=== PATIENT | male | born 1995 | race Caucasian/White ===

== ENCOUNTER 2016-10-03 01:41 | Emergency (ER) | payer SELFPAY ==
--- NOTE | 2016-10-03 03:21 | ED ---
Katty Kurtz Rebecca, scribed for Arron Estes MD on 10/03/16 at 0157 . Substance Abuse/Use - HPI Summary HPI Summary: Pt is a 21 y/o M BIBA who presents to ED for EtOH intoxication. EMS report that his vitals had been stable and that he arouses to voice. Pt was found outside of a bar, collapsed on the ground. Reports that he had vomited in the bar prior to leaving. Vomited 2x while en route to [facility]. Sx result from a binge use of alcohol with sx aggravated and alleviated by nothing. Unsure of how much alcohol has been consumed. Girlfriend denies use of anything beside EtOH. EMS deny any signs of trauma. Level 5 caveat due to decreased responsiveness from EtOH intoxication. - History Of Current Complaint Chief Complaint: EDSubstanceAbuse Stated Complaint: ALCOHOL CONSUMPTION Time Seen by Provider: 10/03/16 01:45 Hx Obtained From: Family/Rn Maternity - Girlfriend, EMS Hx From Patient Unobtainable Due To: Altered Mental Status - EtOH intoxication Ingestion History: Type/Name Of Drug - EtOH, Amount Ingested Overdose Characteristics: Oral Timing Of Abuse: Binge Use Severity Initially: Moderate Severity Currently: Moderate Character: Stuporous Aggravating Factor(s): Nothing Alleviating Factor(s): Nothing Associated Signs And Symptoms: Vomiting - Allergies/Home Medications Allergies/Adverse Reactions: Allergies Allergy/AdvReac Type Severity Reaction Status Date / Time No Known Allergies Allergy Verified 06/21/16 15:16 PMH/Surg Hx/FS Hx/Imm Hx Infectious Disease History: No Infectious Disease History: Denies: Traveled Outside the [place] in Last 30 Days - Family History Known Family History: Negative: Cardiac Disease, Hypertension, Diabetes - Social History Alcohol Use: Occasionally Alcohol Amount: 1 DRINK EVERY OTHER DAY Substance Use Type: Reports: None Smoking Status (MU): Current Every Day Smoker Type: Cigarettes Amount Used/How Often: 1/2 PPD Review of Systems - ROS Summary Review of Systems Summary: ROS limited due to level 5 caveat from EtOH intoxication. Positive: Vomiting All Other Systems Reviewed And Are Negative: No Physical Exam - Summary Physical Exam Summary: PE limited due to level 5 caveat due to AMS from EtOH intoxication. Triage Information Reviewed: Yes Vital Signs On Initial Exam: Initial Vitals Temp Pulse Resp BP Pulse Ox 98.1 F 79 17 116/82 96 10/03/16 01:44 10/03/16 01:44 10/03/16 01:44 10/03/16 01:44 10/03/16 01:44 Vital Signs Reviewed: Yes Completion Of Physical Exam Limited Due To: Altered Mental Status - EtOH intoxication, Level 5 Appearance: Positive: No Pain Distress Head/Face: Positive: Normal Head/Face Inspection, Other - No signs of trauma ENT: Positive: Other - Wretching Neurological: Positive: Sensory/Motor Intact Psychiatric: Positive: Other - Stuporous, responds to voice Diagnostics - Vital Signs Vital Signs Temp Pulse Resp BP Pulse Ox 10/03/16 01:44 98.1 F 79 17 116/82 96 - Laboratory Lab Statement: Any lab studies that have been ordered have been reviewed, and results considered in the medical decision making process. Course/Dx - Course Assessment/Plan: STABLE IN ED. DISCHARGE HOME STABLE. - Diagnoses Provider Diagnoses: Alcohol intoxication Discharge - Discharge Plan Condition: Stable Disposition: HOME Patient Education Materials: Alcohol Intoxication (ED) Referrals: [facility] REFERR[facility] [Outside] No Primary Care Phys,NOPCP [Primary Care Provider] - Additional Instructions: RETURN TO THE EMERGENCY DEPARTMENT FOR ANY WORSENING OF YOUR CONDITION OR QUESTIONS OR CONCERNS. The documentation as recorded by the Katty morgan Rebecca accurately reflects the service I personally performed and the decisions made by me, Arron Estes MD.
[2016-10-03 08:24] VITALS: BP 108/77
== END 2016-10-03 08:55 | disposition home or self-care (01) ==
LOC: ED 01:41
DX: F10.129 Alcohol abuse with intoxication, unspecified (principal); F17.210 Nicotine dependence, cigarettes, uncomplicated
CPT/HCPCS: 99282

== ENCOUNTER 2021-05-24 11:44 | Observation (INO) ==
[2021-05-24 12:42] LABS: Urine Appearance Clear; Urine Bilirubin Negative (Negative); Urine Blood Negative (Negative); Urine Color Colorless; Urine Glucose Negative (Negative); Urine Ketones Negative (Negative); Urine Nitrite Negative (Negative); Urine Protein Negative (Negative); Urine Specific Gravity 1.001 (1.002-1.030); Urine Urobilinogen Negative (Negative)
[2021-05-24 12:54] LABS: ABS Eosinophils 0.1 10^3/ul (0-0.6); ABS Lymphocytes 0.9 10^3/ul (1.0-4.8); ABS Monocytes 0.5 10^3/ul (0-0.8); ABS Neutrophils 2.1 10^3/ul (1.5-7.7); Eosinophil % 1.5 %; Hematocrit 47 % (42-52); Hemoglobin 16.3 g/dL (14.0-18.0); Lymphocyte % 25.5 %; Mean Corpuscular HGB Conc 35 g/dL (31-36); Mean Corpuscular Hemoglobin 35 pg (27-31); Mean Corpuscular Volume 99 fL (80-94); Mean Platelet Volume 6.8 fL (7.4-10.4); Platelet Count 132 10^3/uL (150-450); Red Cell Distribution Width 13 % (10-15); White Blood Count 3.5 10^3/uL (3.5-10.8)
[2021-05-24 13:01] LABS: Urine Benzodiazepine Screen None Detected (None Detect); Urine Cannabinoids Screen None Detected (None Detect); Urine Opiates Screen None Detected (None Detect)
[2021-05-24 13:12] LABS: ALT 60 U/L (7-52); AST 113 U/L (13-39); Albumin/Globulin Ratio 1.7 (1-3); Alkaline Phosphatase 97 U/L (35-149); Anion Gap 11 mmol/L (2-11); Blood Urea Nitrogen 8 mg/dL (6-24); CO2 Carbon Dioxide 29 mmol/L (22-32); Calcium 9.1 mg/dL (8.6-10.3); Chloride 101 mmol/L (101-111); EGFR African American 139.3 (>60); EGFR Non-African American 115.1 (>60); Globulin 2.9 g/dL (2-4); Glucose 95 mg/dL (70-100); Potassium 3.8 mmol/L (3.5-5.0); Sodium 141 mmol/L (135-145); Total Protein 7.9 g/dL (6.4-8.9)
[2021-05-24 13:40] LABS: Acetaminophen < 15 mcg/mL; Alcohol, S 390 mg/dL (<13); Salicylate < 2.50 mg/dL (<30)
[2021-05-24] MEDS ORDERED: Thiamine 100 MG/ML 2 ml VIAL 100 MG, Folic Acid IV 1 MG, Multiple Vitamin IV ADULT 10 M... IV ONE (18:32)
[2021-05-24] MEDS ORDERED: Nicotine PATCH 21 MG/24 HR PATCH TRANSDERM ONE (19:48)
[2021-05-24] MEDS ORDERED: Al Hydrox/Mg Hydrox/Simet LIQ 30 ML UDC PO PRN (21:18)
[2021-05-25] MEDS ORDERED: Multivitamins/Minerals TAB PO SCH (09:00)
[2021-05-25 09:06] VITALS: BP 133/91
== END 2021-05-25 16:00 | disposition home or self-care (01) ==
LOC: ED 11:44 → MED 11:44 → SUATTDRO 21:18 → MED 05-25 02:25
PROVIDERS: ADMIT Student in an Organized Health Care Education/Training Program; ATTEND Internal Medicine